=== PATIENT | male | born 1970 | race Caucasian/White ===

== ENCOUNTER 2022-05-23 15:52 | Emergency (ER) | payer BC ==
[~2022-05-23 15:52] MED LIST: FLAGYL500 MG PO; PROTONIX 40 MG40 M1 PO; ZOFRAN ODT 4 MG4 MG SL; ZOFRAN4 MG PO
[2022-05-23 17:43] LABS: HEMOGLOBIN 14.3 gm/dl (14.0-17.5); RED BLOOD COUNT 5.1 M/UL (4.20-5.50); WHITE BLOOD COUNT 6.5 K/UL (4.5-11.0)
[2022-05-23 17:44] LABS: BORDETELLA PARAPERTUSSIS Not Detected (Not Detectd); BORDETELLA PERTUSSIS Not Detected (Not Detectd); CHLAMYDIA PNEUMONIAE Not Detected (Not Detectd); CORONAVIRUS HKU1 Not Detected (Not Detectd); CORONAVIRUS NL63 Not Detected (Not Detectd); CORONAVIRUS OC43 Not Detected (Not Detectd); CORONOAVIRUS 229E Not Detected (Not Detectd); HUMAN METAPNEUMOVIRUS Not Detected (Not Detectd); HUMAN RHINOVIRUS/ENTEROVIRUS Not Detected (Not Detectd); INFLUENZA A Not Detected (Not Detectd); INFLUENZA B Not Detected (Not Detectd); MYCOPLASMA PNEUMONIAE Not Detected (Not Detectd); PARAINFLUENZA VIRUS 1 Not Detected (Not Detectd); PARAINFLUENZA VIRUS 2 Not Detected (Not Detectd); PARAINFLUENZA VIRUS 3 Not Detected (Not Detectd); PARAINFLUENZA VIRUS 4 Not Detected (Not Detectd); RESPIRATORY SYNCYTIAL VIRUS Not Detected (Not Detectd)
[2022-05-23 18:07] LABS: BUN/CREATININE RATIO 31 (0-10)
[2022-05-23 18:55] LABS: SARS-CoV-2 NOT DETECTED (Not Detectd)
== END 2022-05-23 19:58 | disposition home or self-care (01) ==
LOC: ER1 15:52
PROVIDERS: Nurse Practitioner; Preventive Medicine Occupational Medicine
DX: F41.9 Anxiety disorder, unspecified (principal); E10.9 Type 1 diabetes mellitus without complications; F17.200 Nicotine dependence, unspecified, uncomplicated; Z20.822 Contact with and (suspected) exposure to COVID-19
CPT/HCPCS: 36600; 70450; 71045; 80053; 82009; 82550; 82553; 82803; 84484; 85025; 85379; 86140; 87633; 93005; 94664; 96360; 99285